=== PATIENT | female | born 1985 | race Two or more races ===

== ENCOUNTER 2019-05-13 11:37 | Emergency (ER) | payer BC ==
[~2019-05-13] VITALS: Ht 162.6 cm; Wt 55.3 kg
[2019-05-13] MEDS ORDERED: FOLIC ACID0.8 M1 (12:45)
== END 2019-05-13 13:51 | disposition home or self-care (01) ==
LOC: ER 11:37
DX: O26.891 Other specified pregnancy related conditions, first trimester (principal); R10.2 Pelvic and perineal pain; O46.8X1 Other antepartum hemorrhage, first trimester; O36.80X1 Pregnancy with inconclusive fetal viability, fetus 1; Z34.81 Encounter for supervision of other normal pregnancy, first trimester